=== PATIENT | female | born 1955 | race Caucasian/White ===

== ENCOUNTER 2019-06-20 19:26 | Emergency (ER) | payer BC ==
[~2019-06-20] VITALS: Ht 162.6 cm; Wt 68.0 kg
[2019-06-20] MEDS ORDERED: SYNTHROID125 MC1 PO (19:40)
[2019-06-20] MEDS ORDERED: LANTUS SUBQ (19:41)
[2019-06-20] MEDS ORDERED: ZIAC 5-6.25 MG1 EACH PO (19:41)
[2019-06-20] MEDS ORDERED: VITAMIN D1000 UNI1 PO (19:42)
[2019-06-20] MEDS ORDERED: NOVOLOG100 UNIT/1 SUBQ (19:42)
[2019-06-20] MEDS ORDERED: VITAMIN B-12500 MCG PO (19:42)
[2019-06-20] MEDS ORDERED: NORCO 5-325 TA1 EAC1 PO (20:57)
[2019-06-20 21:48] VITALS: BP 148/80
== END 2019-06-20 21:48 | disposition home or self-care (01) ==
LOC: M.ERS 19:26
DX: S02.32XA Fracture of orbital floor, left side, initial encounter for closed fracture (principal); S00.531A Contusion of lip, initial encounter; S50.312A Abrasion of left elbow, initial encounter; S80.212A Abrasion, left knee, initial encounter; Z91.018 Allergy to other foods; W18.39XA Other fall on same level, initial encounter; Y92.89 Other specified places as the place of occurrence of the external cause; Y93.89 Activity, other specified; Y99.8 Other external cause status